=== PATIENT | male | born 1995 | race Two or more races ===

== ENCOUNTER 2022-02-09 00:48 | Emergency (ER) | payer OTHER ==
[~2022-02-09] VITALS: Ht 160 cm; Wt 77.1 kg
--- NOTE | 2022-02-09 01:06 | NUR ---
BIB 78 FOR PSYCH EVAL. PT WS PICKED UP FROM THE [facility]. PATIENT ADMITTED ON USING METH. PT A/OX4. TOLERATING R/A WELL WITH NO RESP DISTRESS. SAFETY MEASURES IN PLACE.
[2022-02-09] MEDS ORDERED: LORAZEPAM 1 MG TABLET ONE (01:11)
--- NOTE | 2022-02-09 01:13 | NUR ---
LIBRARIAN SPECIAL COLLECTIONS AT PT'S BEDSIDE
--- NOTE | 2022-02-09 01:23 | NUR ---
COVID ANTIGEN SWAB COLLECTED AND SENT TO LAB
[2022-02-09] MEDS ORDERED: LORAZEPAM 1 MG TABLET PO ONE (01:30)
--- NOTE | 2022-02-09 01:30 | NUR ---
URINE COLLECTED AND SENT TO LAB
--- NOTE | 2022-02-09 01:47 | NUR ---
SECURITY AT PT'S BEDSIDE FOR WANDING
--- NOTE | 2022-02-09 01:47 | NUR ---
Baltazar nj in ED - 02/09/22 at 0150 by FREDA SECURITY AT PT'S BEDSIDE FOR EVAL
[2022-02-09 01:51] LABS: BASOPHILS % (AUTO) 0.2 % (0.0-2.0); HEMATOCRIT 51 % (39-51); HEMOGLOBIN 16.8 g/dL (13.5-17.5); LYMPHOCYTES # (AUTO) 2.9 K/uL (0.8-4.8); LYMPHOCYTES % (AUTO) 19.4 % (20.0-44.0); MEAN CORPUSCULAR HGB CONC 33 g/dl (31.0-36.0); MEAN CORPUSCULAR VOLUME 87 fL (80-96); MONOCYTES # (AUTO) 0.9 K/uL (0.1-1.30); MONOCYTES % (AUTO) 5.9 % (2.0-12.0); NEUTROPHILS # (AUTO) 11.2 K/uL (1.8-8.9); NEUTROPHILS % (AUTO) 74.5 % (43.0-81.0); PLATELET COUNT (AUTO) 246 K/uL (150-450); RED BLOOD CELL COUNT(AUTO) 5.86 MIL/uL (4.5-6.0)
[2022-02-09 01:56] LABS: BILIRUBIN,URINE NEGATIVE (NEGATIVE); COLOR,URINE YELLOW (YELLOW); LEUKOCYTE ESTERASE ,URINE NEGATIVE (NEGATIVE); NITRITE, URINE NEGATIVE (NEGATIVE); PROTEIN,URINE 2+ mg/dl (NEGATIVE); UGLUCOSE NEGATIVE (NEGATIVE); UROBILINOGEN,URINE 0.2 EU/dL (0.2)
[2022-02-09 02:11] LABS: BACTERIA,URINE Few /HPF (None Seen); RBC,URINE 0-2 /HPF (0-2); SQUAMOUS EPITHELIAL CELL,UR Few /HPF (None Seen); WBC,URINE 0-2 /HPF (0-3)
[2022-02-09 02:15] LABS: CALCIUM, SERUM 9.2 mg/dL (8.5-10.1); CARBON DIOXIDE 26 mmol/L (21-32); CHLORIDE 99 mmol/L (98-107); CREATININE 1.4 mg/dL (0.6-1.3); GLUCOSE 135 mg/dL (74-106); POTASSIUM 3.9 mmol/L (3.5-5.1); SODIUM SERUM 135 mmol/L (136-145); UREA NITROGEN, BLOOD 15 mg/dL (7-18)
[2022-02-09 02:21] LABS: ALANINE AMINOTRANSFERASE 148 U/L (12-78); ALBUMIN 4.3 g/dL (3.4-5.0); ALCOHOL, BLOOD < 3 mg/dL (0-0); ALKALINE PHOSPHATASE 86 U/L (46-116); ASPARTATE AMINOTRANSFERASE 51 U/L (15-37); BILIRUBIN,DIRECT 0.1 mg/dL (0.0-0.2); BILIRUBIN,TOTAL 0.4 mg/dL (0.2-1.0); TOTAL PROTEIN, SERUM 8.9 g/dL (6.4-8.2)
[2022-02-09 02:22] LABS: ACETAMINOPHEN 0 ug/ml (10-30)
--- NOTE | 2022-02-09 03:18 | NUR ---
FACESHEET AND CLINICALS FAXED TO [facility].
--- NOTE | 2022-02-09 05:26 | NUR ---
PT GOT ACCEPTED TO [facility] UNDER DR PEÑA. # FOR REPORT IS [phone]
--- NOTE | 2022-02-09 05:27 | NUR ---
CALLED [facility] FOR TRASPORTATION ETA IS 9:30
[2022-02-09 06:09] VITALS: BP 156/87
--- NOTE | 2022-02-09 06:09 | NUR ---
REPORT GIVEN TO SAGAR REYES RN FOR [facility]
--- NOTE | 2022-02-09 07:29 | NUR ---
PT IN BED BREATHING IS EVEN AND UNLABORED NO S/S OF DISTRESS AWAITING TRANSFER TO [facility]. BREAKFAST WAS SERVED
== END 2022-02-09 10:16 ==
LOC: ER 00:51
DX: R45.851 Suicidal ideations (principal); Z20.822 Contact with and (suspected) exposure to COVID-19; F15.90 Other stimulant use, unspecified, uncomplicated; I10 Essential (primary) hypertension
CPT/HCPCS: 99285; 85025; 80048; 80076; 81001; 36415; 87426; 80143; 80320; 80307; C9803; G0480

== ENCOUNTER 2024-06-11 06:43 | Emergency (ER) | payer OTHER ==
[~2024-06-11] VITALS: Ht 160 cm; Wt 77.1 kg
[2024-06-11] MEDS ORDERED: ARIPIPRAZOLE 2 MG TABLET ONE (07:08)
[2024-06-11] MEDS: ARIPIPRAZOLE 5 MG TABLET PO ONE (07:14)
[2024-06-11 07:22] LABS: BASOPHILS # (AUTO) 0.1 K/uL (0.0-0.2); BASOPHILS % (AUTO) 0.8 % (0.0-2.0); EOSINOPHILS # (AUTO) 0.1 K/uL (0.0-0.7); EOSINOPHILS % (AUTO) 1.7 % (0.0-6.0); HEMATOCRIT 49 % (39-51); HEMOGLOBIN 16.7 g/dL (13.5-17.5); LYMPHOCYTES # (AUTO) 2.7 K/uL (0.8-4.8); LYMPHOCYTES % (AUTO) 33.3 % (20.0-44.0); MEAN CORPUSCULAR HEMOGLOBIN 29 PG (26.0-33.0); MEAN CORPUSCULAR HGB CONC 34 g/dl (31.0-36.0); MEAN CORPUSCULAR VOLUME 83 fL (80-96); MONOCYTES # (AUTO) 0.5 K/uL (0.1-1.30); MONOCYTES % (AUTO) 6.1 % (2.0-12.0); NEUTROPHILS # (AUTO) 4.7 K/uL (1.8-8.9); NEUTROPHILS % (AUTO) 58.1 % (43.0-81.0); PLATELET COUNT (AUTO) 246 K/uL (150-450); RED BLOOD CELL COUNT(AUTO) 5.88 MIL/uL (4.5-6.0); RED CELL DISTRIBUTION WIDTH 13.7 % (11.5-15.0); WHITE BLOOD COUNT (AUTO) 8.1 K/uL (4.3-11.0)
[2024-06-11 07:30] LABS: APPEARANCE,URINE CLEAR (CLEAR); BILIRUBIN,URINE NEGATIVE (NEGATIVE); BLOOD, URINE NEGATIVE Ery/uL (NEGATIVE); COLOR,URINE YELLOW (YELLOW); KETONES,URINE TRACE mg/dL (NEGATIVE); LEUKOCYTE ESTERASE ,URINE NEGATIVE (NEGATIVE); NITRITE, URINE NEGATIVE (NEGATIVE); PROTEIN,URINE NEGATIVE (NEGATIVE); UGLUCOSE NEGATIVE (NEGATIVE); UROBILINOGEN,URINE 0.2 EU/dL (0.2)
[2024-06-11 07:37] LABS: CALCIUM, SERUM 9.5 mg/dL (8.5-10.1); CARBON DIOXIDE 28 mmol/L (21-32); CHLORIDE 104 mmol/L (98-107); CREATININE 0.9 mg/dL (0.6-1.3); GLUCOSE 101 mg/dL (74-106); POTASSIUM 4.1 mmol/L (3.5-5.1); SODIUM SERUM 141 mmol/L (136-145); UREA NITROGEN, BLOOD 17 mg/dL (7-18)
[2024-06-11 07:42] LABS: ALANINE AMINOTRANSFERASE 133 U/L (12-78); ALBUMIN 4.3 g/dL (3.4-5.0); ALCOHOL, BLOOD < 3 mg/dL (0-10); ALKALINE PHOSPHATASE 101 U/L (46-116); ASPARTATE AMINOTRANSFERASE 48 U/L (15-37); BILIRUBIN,DIRECT 0.2 mg/dL (0.0-0.2); BILIRUBIN,TOTAL 0.9 mg/dL (0.2-1.0); TOTAL PROTEIN, SERUM 8.4 g/dL (6.4-8.2)
[2024-06-11 07:43] LABS: ACETAMINOPHEN <10 ug/ml (10-30); SALICYLATE < 2.3 mg/dL (2.8-20.0)
[2024-06-11 07:44] LABS: AMPHETAMINE, URINE NEGATIVE (NEGATIVE); BARBITURATE, URINE NEGATIVE (NEGATIVE); BENZODIAZEPINE, URINE NEGATIVE (NEGATIVE); CANNABINOID, URINE NEGATIVE (NEGATIVE); COCCAINE, URINE NEGATIVE (NEGATIVE); OPIATE, URINE NEGATIVE (NEGATIVE); PHENCYCLIDINE SCREEN,URINE NEGATIVE (NEGATIVE)
[2024-06-11 09:21] LABS: ADD URINE CULTURE NO; BACTERIA,URINE Few /HPF (None Seen); RBC,URINE NONE SEEN /HPF (0-2); SQUAMOUS EPITHELIAL CELL,UR Few /HPF (None Seen); WBC,URINE NONE SEEN /HPF (0-3)
[2024-06-11 11:09] VITALS: BP 141/81; TEMP 98.3; O2SAT 98
== END 2024-06-11 11:12 ==
LOC: ER 06:45
DX: R45.851 Suicidal ideations (principal); R44.0 Auditory hallucinations; I10 Essential (primary) hypertension; F15.10 Other stimulant abuse, uncomplicated; E78.5 Hyperlipidemia, unspecified; Z86.19 Personal history of other infectious and parasitic diseases; Z20.822 Contact with and (suspected) exposure to COVID-19
CPT/HCPCS: 36415; 80048-TC; 80076-TC; 81001; 85025-TC; G0480

== ENCOUNTER 2024-09-05 13:25 | Emergency (ER) | payer OTHER ==
[~2024-09-05] VITALS: Ht 160 cm; Wt 77.1 kg
[2024-09-05 14:57] LABS: PLATELET COUNT (AUTO) 173 K/uL (150-450); RED BLOOD CELL COUNT(AUTO) 5.37 MIL/uL (4.5-6.0); RED CELL DISTRIBUTION WIDTH 13.2 % (11.5-15.0); WHITE BLOOD COUNT (AUTO) 8.6 K/uL (4.3-11.0)
[2024-09-05 15:07] LABS: CALCIUM, SERUM 8.6 mg/dL (8.5-10.1); CREATININE 1.0 mg/dL (0.6-1.3); SODIUM SERUM 138 mmol/L (136-145); UREA NITROGEN, BLOOD 14 mg/dL (7-18)
[2024-09-05 16:12] VITALS: BP 102/70; TEMP 97.9; O2SAT 98
== END 2024-09-05 16:14 | disposition home or self-care (01) ==
LOC: ER 13:30
DX: R07.9 Chest pain, unspecified (principal); I10 Essential (primary) hypertension; E78.00 Pure hypercholesterolemia, unspecified; R94.31 Abnormal electrocardiogram [ECG] [EKG]; Z86.19 Personal history of other infectious and parasitic diseases
CPT/HCPCS: 36415; 71045-TC; 80048-TC; 84484-TC; 85025-TC

== ENCOUNTER 2024-11-17 21:07 | Emergency (ER) | payer OTHER ==
[~2024-11-17] VITALS: Ht 165.1 cm; Wt 88.5 kg
[2024-11-17 22:23] LABS: PLATELET COUNT (AUTO) 183 K/uL (150-450); RED BLOOD CELL COUNT(AUTO) 5.31 MIL/uL (4.5-6.0); RED CELL DISTRIBUTION WIDTH 13.2 % (11.5-15.0); WHITE BLOOD COUNT (AUTO) 8.2 K/uL (4.3-11.0)
[2024-11-17 22:30] LABS: CALCIUM, SERUM 8.4 mg/dL (8.5-10.1); CREATININE 1.1 mg/dL (0.6-1.3); SODIUM SERUM 139 mmol/L (136-145); UREA NITROGEN, BLOOD 11 mg/dL (7-18)
[2024-11-17 22:32] LABS: ALCOHOL, BLOOD < 3 mg/dL (0-10)
[2024-11-17 23:25] LABS: BARBITURATE, URINE NEGATIVE (NEGATIVE); BENZODIAZEPINE, URINE NEGATIVE (NEGATIVE); CANNABINOID, URINE NEGATIVE (NEGATIVE); COCCAINE, URINE NEGATIVE (NEGATIVE); OPIATE, URINE NEGATIVE (NEGATIVE)
[2024-11-17 23:26] LABS: AMPHETAMINE, URINE POSITIVE (NEGATIVE)
[2024-11-18 00:27] VITALS: BP 119/81; TEMP 98.2; O2SAT 98
== END 2024-11-18 00:27 | disposition home or self-care (01) ==
LOC: ER 21:17
DX: R07.89 Other chest pain (principal); I11.9 Hypertensive heart disease without heart failure; E78.5 Hyperlipidemia, unspecified; Z86.19 Personal history of other infectious and parasitic diseases; Z91.199 Patient's noncompliance with other medical treatment and regimen due to unspecified reason
CPT/HCPCS: 36415; 71045-TC; 80048-TC; 84443-TC; 84484-TC; 85025-TC; G0480

== ENCOUNTER 2025-01-05 19:45 | Emergency (ER) | payer OTHER ==
[~2025-01-05] VITALS: Ht 165.1 cm; Wt 83.9 kg
[2025-01-05 19:51] VITALS: TEMP 98.2
[2025-01-05] MEDS ORDERED: LORAZEPAM INJ 2 MG/ML VIAL ONE (20:02)
[2025-01-05] MEDS: LORAZEPAM INJ 2 MG/ML VIAL IM/IV ONE (20:14)
[2025-01-05 20:18] LABS: PLATELET COUNT (AUTO) 253 K/uL (150-450); RED BLOOD CELL COUNT(AUTO) 6.16 MIL/uL (4.5-6.0); RED CELL DISTRIBUTION WIDTH 13.4 % (11.5-15.0); WHITE BLOOD COUNT (AUTO) 8.8 K/uL (4.3-11.0)
[2025-01-05] MEDS: LORAZEPAM INJ 2 MG/ML VIAL IV ONE (20:21)
[2025-01-05 20:24] LABS: CALCIUM, SERUM 9.5 mg/dL (8.5-10.1); CREATININE 1.4 mg/dL (0.6-1.3); SODIUM SERUM 137 mmol/L (136-145); UREA NITROGEN, BLOOD 13 mg/dL (7-18)
[2025-01-05 20:29] LABS: ALCOHOL, BLOOD < 3 mg/dL (0-10); ASPARTATE AMINOTRANSFERASE 33 U/L (15-37); CREATINE KINASE, TOTAL 453 U/L (39-308); TOTAL PROTEIN, SERUM 8.8 g/dL (6.4-8.2)
[2025-01-05] MEDS: IV NS 0.9% 1,000 ML BAG IV ONE ×2 (20:41)
[2025-01-05 21:10] VITALS: BP 148/101; O2SAT 99
[2025-01-05] MEDS ORDERED: ARIP10TA9 PO (21:17)
[2025-01-05] MEDS ORDERED: BUSP10TA35 PO (21:17)
[2025-01-05 21:25] LABS: APPEARANCE,URINE CLEAR (CLEAR); BLOOD, URINE NEGATIVE Ery/uL (NEGATIVE); LEUKOCYTE ESTERASE ,URINE NEGATIVE (NEGATIVE); NITRITE, URINE NEGATIVE (NEGATIVE); UGLUCOSE NEGATIVE (NEGATIVE)
[2025-01-05 21:31] LABS: BARBITURATE, URINE NEGATIVE (NEGATIVE); BENZODIAZEPINE, URINE NEGATIVE (NEGATIVE); CANNABINOID, URINE NEGATIVE (NEGATIVE); COCCAINE, URINE NEGATIVE (NEGATIVE); OPIATE, URINE NEGATIVE (NEGATIVE)
[2025-01-05 21:36] LABS: AMPHETAMINE, URINE POSITIVE (NEGATIVE)
== END 2025-01-05 21:31 | disposition home or self-care (01) ==
LOC: ER 19:50
DX: F41.0 Panic disorder [episodic paroxysmal anxiety] (principal); F15.90 Other stimulant use, unspecified, uncomplicated; I11.9 Hypertensive heart disease without heart failure; E78.5 Hyperlipidemia, unspecified; Z86.19 Personal history of other infectious and parasitic diseases; Z79.899 Other long term (current) drug therapy
CPT/HCPCS: 99284; 96374; 96361; 93005; 85025; 80048; 82550; 80076; 81003; 36415; 82553; 80143; 80320; 80307; J2060; J7030; G0480

== ENCOUNTER 2025-01-12 07:23 | Emergency (ER) | payer OTHER ==
[~2025-01-12] VITALS: Ht 160 cm; Wt 74.8 kg
[~2025-01-12 07:23] MED LIST: ARIP10TA9 PO; BUSP10TA35 PO
--- NOTE | 2025-01-12 07:51 | NUR ---
dr torres at bedside for eval.
[2025-01-12] MEDS ORDERED: LORAZEPAM 1 MG TABLET ONE (07:54)
[2025-01-12] MEDS: LORAZEPAM 1 MG TABLET PO ONE (07:56)
--- NOTE | 2025-01-12 07:57 | NUR ---
veterinary laboratory diagnostician at bedside for blood draw.
[2025-01-12 08:12] LABS: PLATELET COUNT (AUTO) 215 K/uL (150-450); RED BLOOD CELL COUNT(AUTO) 5.59 MIL/uL (4.5-6.0); RED CELL DISTRIBUTION WIDTH 13.2 % (11.5-15.0); WHITE BLOOD COUNT (AUTO) 8.2 K/uL (4.3-11.0)
[2025-01-12 08:17] LABS: APPEARANCE,URINE CLEAR (CLEAR); BLOOD, URINE NEGATIVE Ery/uL (NEGATIVE); LEUKOCYTE ESTERASE ,URINE NEGATIVE (NEGATIVE); NITRITE, URINE NEGATIVE (NEGATIVE); UGLUCOSE NEGATIVE (NEGATIVE)
[2025-01-12 08:20] LABS: CALCIUM, SERUM 8.9 mg/dL (8.5-10.1); CREATININE 1.1 mg/dL (0.6-1.3); SODIUM SERUM 138 mmol/L (136-145); UREA NITROGEN, BLOOD 12 mg/dL (7-18)
[2025-01-12 08:26] LABS: ALCOHOL, BLOOD < 3 mg/dL (0-10); ASPARTATE AMINOTRANSFERASE 27 U/L (15-37); TOTAL PROTEIN, SERUM 8.0 g/dL (6.4-8.2)
[2025-01-12 08:30] LABS: BARBITURATE, URINE NEGATIVE (NEGATIVE); BENZODIAZEPINE, URINE NEGATIVE (NEGATIVE); CANNABINOID, URINE NEGATIVE (NEGATIVE); COCCAINE, URINE NEGATIVE (NEGATIVE); OPIATE, URINE NEGATIVE (NEGATIVE)
[2025-01-12 08:32] LABS: AMPHETAMINE, URINE POSITIVE (NEGATIVE)
--- NOTE | 2025-01-12 09:24 | NUR ---
CALLED [facility] FOR READ
[2025-01-12 10:05] VITALS: BP 119/79; TEMP 98; O2SAT 98
== END 2025-01-12 10:31 | disposition home or self-care (01) ==
LOC: ER 07:33
DX: F41.0 Panic disorder [episodic paroxysmal anxiety] (principal); F15.129 Other stimulant abuse with intoxication, unspecified; E78.5 Hyperlipidemia, unspecified; I10 Essential (primary) hypertension; F17.200 Nicotine dependence, unspecified, uncomplicated; Z91.048 Other nonmedicinal substance allergy status; Z86.19 Personal history of other infectious and parasitic diseases; Z79.899 Other long term (current) drug therapy
CPT/HCPCS: 36415; 71045-TC; 80048-TC; 80076-TC; 84484-TC; 85025-TC; G0480